=== PATIENT | male | born 1995 | race Caucasian/White ===

== ENCOUNTER → 2017-01-29 | Outpatient (CLI) | payer OTHER | LOC: KOH-I 14:27 | DX: M54.89 Other dorsalgia (principal) | CPT/HCPCS: 72110 ==

== ENCOUNTER 2020-11-02 19:11 | Emergency (ER) | payer BC ==
[~2020-11-02 19:11] MED LIST: IBUPROFEN600 MG PO
[2020-11-02 20:26] LABS: HEMOGLOBIN 16.3 gm/dl (14.0-17.5); RED BLOOD COUNT 5.34 M/UL (4.20-5.50)
[2020-11-02 20:51] LABS: BUN/CREATININE RATIO 16 (0-10)
[2020-11-03] MEDS ORDERED: PEPCID20 MG PO (00:15)
== END 2020-11-03 00:45 | disposition home or self-care (01) ==
LOC: ER1 19:11
PROVIDERS: Physician Assistant
DX: R10.9 Unspecified abdominal pain (principal); R07.9 Chest pain, unspecified; R11.10 Vomiting, unspecified; Z86.16 Personal history of COVID-19
CPT/HCPCS: 71045; 71275; 80053; 82150; 83690; 85025; 93005; 96365; 96375; 99285; C9113; Q9967

== ENCOUNTER 2020-12-25 21:51 | Emergency (ER) | payer BC ==
[~2020-12-25 21:51] MED LIST changes: +PEPCID20 MG PO
[2020-12-26] MEDS ORDERED: LODINE CAP 300300 MG PO (01:29)
== END 2020-12-26 02:05 | disposition home or self-care (01) ==
LOC: ER1 21:51
DX: S83.91XA Sprain of unspecified site of right knee, initial encounter (principal); X50.9XXA Other and unspecified overexertion or strenuous movements or postures, initial encounter; Y92.009 Unspecified place in unspecified non-institutional (private) residence as the place of occurrence of the external cause
CPT/HCPCS: 29530; 73564; 99283

== ENCOUNTER → 2021-01-06 | Outpatient (CLI) | payer BC ==
[~2021-01-06] MED LIST changes: +LODINE CAP 300300 MG PO
== END ==
LOC: EMI 08:15
DX: M25.461 Effusion, right knee (principal); S83.512A Sprain of anterior cruciate ligament of left knee, initial encounter; S83.242A Other tear of medial meniscus, current injury, left knee, initial encounter; X58.XXXA Exposure to other specified factors, initial encounter
CPT/HCPCS: 73721

== ENCOUNTER → 2021-06-20 | Outpatient (CLI) | payer BC | LOC: KOH-I 09:00 | DX: S83.200D Bucket-handle tear of unspecified meniscus, current injury, right knee, subsequent encounter (principal) | CPT/HCPCS: 73721 ==

== ENCOUNTER → 2022-03-17 | Day surgery (SDC) | payer BC | END | disposition home or self-care (01) | LOC: OR 06:32 | DX: S83.241A Other tear of medial meniscus, current injury, right knee, initial encounter (principal); T84.84XA Pain due to internal orthopedic prosthetic devices, implants and grafts, initial encounter; G89.18 Other acute postprocedural pain; Y79.2 Prosthetic and other implants, materials and accessory orthopedic devices associated with adverse incidents; Y83.9 Surgical procedure, unspecified as the cause of abnormal reaction of the patient, or of later complication, without mention of misadventure at the time of the procedure; M25.861 Other specified joint disorders, right knee | CPT/HCPCS: J0171; J0690; J1100; J1170; J1885; J2001; J2250; J2405; J2704; J3010; J7120 ==